=== PATIENT | male | born 1960 | race Caucasian/White ===

== ENCOUNTER 2018-08-09 15:29 | Inpatient (IN) | payer OTHER ==
[2018-08-09 16:35] VITALS: BMI 17.4
--- NOTE | 2018-08-09 17:31 | HP ---
CIWA Score - Admission Criteria [facility] Guidelines: Admission for Medically Managed Detox: Requires at least one of the followin. CIWA greater than 12 2. Seizures within the past 24 hours 3. Delirium tremens within the past 24 hours 4. Hallucinations within the past 24 hours 5. Acute intervention needed for co occurring medical disorder 6. Acute intervention needed for co occurring psychiatric disorder 7. Severe withdrawal that cannot be handled at a lower level of care (continued vomiting, continued diarrhea, abnormal vital signs) requiring intravenous medication and/or fluids 8. Admission ROS S - HPI Chief Complaint: SEEKING REHAB SERVICES Allergies/Adverse Reactions: Allergies Allergy/AdvReac Type Severity Reaction Status Date / Time mushroom Allergy Verified 08/09/18 17:27 shellfish derived AdvReac Verified 08/09/18 17:27 History of Present Illness: 57 Y.O. MAN WITH A HISTORY OF HEROIN DEPENDENCE IS HERE SEEKING ADMISSION TO REHAB. HE REPORTS HIS LAST REHAB ADMISSION WAS 2 YEARS AGO AT [facility]. HE IS CURRENTLY ENROLLED IN [facility] ([phone]) [facility] AND STATES HE WAS LAST MEDICATED TODAY AT 70MG OF METHADONE. LONGEST PERIOD OF ILLICIT DRUG ABSTINENCE HAS BEEN 11 YEARS. Exam Limitations: No Limitations - Ebola screening Have you traveled outside of the country in the last 21 days: No Have you had contact with anyone from an Ebola affected area: No Have you been sick,other than usual withdrawal symptoms: No - Review of Systems Constitutional: Unintentional Wgt. Loss EENT: reports: No Symptoms Reported Respiratory: reports: No Symptoms reported Cardiac: reports: No Symptoms Reported GI: reports: Nausea : reports: No Symptoms Reported Musculoskeletal: reports: Back Pain Integumentary: reports: No Symptoms Reported Neuro: reports: No Symptoms reported Endocrine: reports: No Symptoms Reported Hematology: reports: No Symptoms Reported Psychiatric: reports: Anxious Other Systems: Reviewed and Negative Patient History - Patient Medical History Hx Anemia: No Hx Asthma: Yes Hx Chronic Obstructive Pulmonary Disease (COPD): No Hx Cancer: No Hx Cardiac Disorders: No Hx Congestive Heart Failure: No Hx Hypertension: No Hx Hypercholesterolemia: No Hx Pacemaker: No HX Cerebrovascular Accident: No Hx Seizures: No Hx Dementia: No Hx Diabetes: No Hx Gastrointestinal Disorders: No Hx Liver Disease: No Hx Genitourinary Disorders: No Hx Sexually Transmitted Disorders: No Hx Renal Disease (ESRD): No Hx Thyroid Disease: No Hx Human Immunodeficiency Virus (HIV): No Hx Hepatitis C: Yes (UNTREATED) Hx Depression: Yes Hx Suicide Attempt: Yes (HX OF SUICID ATTEMPS; LAST WAS IN 06/2017-OVERDOSE ) Hx Bipolar Disorder: Yes Hx Schizophrenia: Yes - Patient Surgical History Past Surgical History: Yes Hx Abdominal Surgery: Yes Anesthesia Reaction: No - PPD History Previous Implant?: Yes Documented Results: Negative w/o proof - Reproductive History Patient is a Female of Child Bearing Age (11 -55 yrs old): No - Smoking Cessation Smoking history: Current every day smoker Have you smoked in the past 12 months: Yes Aproximately how many cigarettes per day: 4 Initiated information on smoking cessation: Yes 'Breaking Loose' booklet given: 08/09/18 - Substance & Tx. History Hx Alcohol Use: No Hx Substance Use: Yes Substance Use Type: Heroin Hx Substance Use Treatment: Yes (ENROLLED IN [facility] 2 YEARS AGO ) - Substances Abused Heroin Route: Injection Frequency: 3-6 times per week Amount used: 1-2 BAGS Age of first use: 13 Date of Last Use: 08/02/18 Family Disease History - Family Disease History Family Disease History: Respiratory: Father ( ) Admission Physical Exam [facility] - Vital Signs Vital Signs: Vital Signs - 24 hr 08/09/18 16:34 Temperature 98.2 F Pulse Rate 64 Respiratory 18 Rate Blood Pressure 154/98 - Physical General Appearance: Yes: Thin, Anxious HEENTM: Yes: Hearing grossly Normal, Normocephalic Respiratory: Yes: Chest Non-Tender, Lungs Clear, Normal Breath Sounds, No Respiratory Distress, No Accessory Muscle Use Neck: Yes: No masses,lesions,Nodules Breast: Yes: Breast Exam Deferred Cardiology: Yes: Regular Rhythm, Regular Rate Abdominal: Yes: Normal Bowel Sounds, Non Tender Genitourinary: Yes: Other (NO COMPLAINTS REPORTED) Back: Yes: Normal Inspection Musculoskeletal: Yes: Back pain, Other (AMBULATES WITH THE USE OF) Extremities: Yes: Normal Inspection, Normal Range of Motion Neurological: Yes: Alert, Normal Mood/Affect, Normal Response. No: Abnormal Cranial NS Integumentary: Yes: Normal Color, Dry, Track Purvis Lymphatic: Yes: Within Normal Limits - Diagnostic (1) Opioid dependence on agonist therapy Current Visit: Yes Status: Chronic (2) Asthma Current Visit: Yes Status: Chronic (3) Underweight Current Visit: Yes Status: Acute (4) Back pain Current Visit: Yes Status: Chronic Qualifiers: Back pain location: low back pain Comment: AMBULATES WITH THE USE OF A CANE (5) Psoriasis Current Visit: Yes Status: Chronic (6) Nicotine dependence Current Visit: Yes Status: Chronic (7) HCV (hepatitis C virus) Current Visit: Yes Status: Chronic Cleared for Admission [facility] - Detox or Rehab [facility] Level of Care: Observation Bed Detox Regimen/Protocol: Not Applicable Claeared for Rehab Admission: Yes [facility] Breath Alcohol Content Breath Alcohol Content: 0 Urine Drug Screen - Results Drug Screen Negative: Yes Urine Drug Screen Results: MTD-Methadone Inpatient Rehab Admission - Initial Determination Are CD services needed?: Yes Free of communicable disease: Yes Not in need of hospitalization: Yes - Rehab Admission Criteria Previous failed treatment: Yes Poor recovery environment: Yes Comorbidities: Yes Lacks judgement: Yes Patient is meeting Inpatient Rehab admission criteria:: Yes
[2018-08-09] MEDS ORDERED: P-EPHED 60MG/TRIPROLIDI 2.5MG TABLET PO PRN (17:48)
[2018-08-09] MEDS ORDERED: guaiFENesin/D-METHORPHAN HB 10 ML UNIT-DOSE CUPS PO PRN (17:48)
[2018-08-09] MEDS ORDERED: MENTHOL/PHENOL 1 EACH UD MM PRN (17:48)
[2018-08-09] MEDS ORDERED: MAGNESIUM HYDROX 2400MG/30ML ORAL SUSPENSION 30 ML CUP PO PRN (17:48)
[2018-08-09] MEDS ORDERED: hydrOXYzine PAMOATE 50 MG CAPSULE (FP) PO PRN (17:48)
[2018-08-09] MEDS ORDERED: LOPERAMIDE HCL 2 MG CAPSULE PO PRN (17:48)
[2018-08-09] MEDS ORDERED: MAGNESIUM CITRATE 300 ML BOTTLE PO PRN (17:48)
[2018-08-09] MEDS ORDERED: MAG HYDROX/AL HYDROX/SIMETH 30 ML UNIT-DOSE CUP PO PRN (17:48)
[2018-08-09] MEDS ORDERED: ALBUTEROL SO4 8 GM HFA INHALER IH PRN (17:50)
[2018-08-09] MEDS: ACETAMINOPHEN 325 MG TABLET (FP) PO PRN (19:03)
[2018-08-09] MEDS ORDERED: MELATONIN 5 MG TABLETS PO PRN (22:00)
[2018-08-09] MEDS: THIAMINE HCL 100 MG TABLET (FP) PO SCH (23:10)
[2018-08-09 23:25] LABS: URINE APPEARANCE CLEAR; URINE BILIRUBIN NEGATIVE (<2.0 mg/dL); URINE COLOR LTYELLOW; URINE GLUCOSE (UA) NEGATIVE (NEGATIVE); URINE KETONE NEGATIVE (NEGATIVE); URINE LEUK ESTERASE NEGATIVE (NEGATIVE); URINE NITRITE NEGATIVE (NEGATIVE); URINE PROTEIN NEGATIVE (NEGATIVE); URINE UROBILINOGEN NEGATIVE mg/dL (0.2-1.0)
[2018-08-10] MEDS: ACETAMINOPHEN 325 MG TABLET (FP) PO PRN ×2 (06:33→20:21)
[2018-08-10] MEDS ORDERED: METHADONE HCL 10 MG TABLET PO SCH (07:30)
[2018-08-10] MEDS ORDERED: METHADONE HCL 10 MG TABLET ONE (07:36)
[2018-08-10] MEDS ORDERED: METHADONE HCL 40 MG DISPERSABLE TABLET ONE (07:36)
[2018-08-10] MEDS: METHADONE 40 MG, METHADONE 30 MG PO SCH (07:41)
[2018-08-10] MEDS: PRENATAL VITAMINS W/ FOLIC ACID TABLET (FP) PO SCH (10:10)
[2018-08-10] MEDS: NICOTINE 14 MG/24 HOURS TOPICAL PATCH TD SCH (10:10)
--- NOTE | 2018-08-10 11:47 | EKG ---
Test Reason : Blood Pressure : / mmHG Vent. Rate : 059 BPM Atrial Rate : 059 BPM P-R Int : 100 ms QRS Dur : 088 ms QT Int : 446 ms P-R-T Axes : 074 090 081 degrees QTc Int : 441 ms SINUS BRADYCARDIA WITH SHORT MS RIGHTWARD AXIS ABNORMAL ECG NO PREVIOUS ECGS AVAILABLE Confirmed by MARRY MEYER MD ([id number]) on 08/10/2018 11:47:15 AM Referred By: Confirmed By:MARRY MEYER MD
--- NOTE | 2018-08-10 12:00 | HP ---
Psychiatrist Admission - Data Date of interview: 08/10/18 Admission source: [facility] Identifying data: This is the first admission to [address] [place] [address] for this 57 years old H male single father of 3,homeless, supported by PA. Medical History: Significant for Hep C,Psoriasis,BA,Low back pain. Psychiatric History: patient is poor historian,reports long and extensive psychiatric history started back in his 32 .He reports multiple psychiatric hospitalizations.About 6-7 suicidal attemptrs,most recent in Jun 2017 ([facility]OD) .Nothing recently.Patient sees psychiatrist at [facility] . Current medications:RISPERDAL 3 MG PO BID AND REMERON 30 MG PO HS. Physical/Sexual Abuse/Trauma History: Not willing to discuss at this time. Vital Signs: Vital Signs - 24 hr 08/09/18 08/09/18 08/10/18 16:34 20:18 00:30 Temperature 98.2 F 98.6 F Pulse Rate 64 60 Respiratory 18 18 18 Rate Blood Pressure 154/98 134/92 08/10/18 08/10/18 03:30 06:44 Temperature 97.5 F L Pulse Rate 65 Respiratory 18 16 Rate Blood Pressure 142/98 Allergies/Adverse Reactions: Allergies Allergy/AdvReac Type Severity Reaction Status Date / Time mushroom Allergy Hives Verified 08/09/18 22:37 No Known Drug Allergies Allergy Verified 08/09/18 17:59 shellfish derived AdvReac Hives Verified 08/09/18 22:37 Date of last physical exam: 08/09/18 Concur with the findings of this exam: Yes - Substance Abuse/Tx History Hx Alcohol Use: No (socially) Hx Substance Use: Yes (heroin iv since 13 yo,2 bags 3-6 times a week) Substance Use Type: Heroin, Opiates Hx Substance Use Treatment: Yes (longest abstinence 12 years) Mental Status Exam - Mental Status Exam Alert and Oriented to: Time, Place, Person Cognitive Function: Grossly Intact Patient Appearance: Unkempt Mood: Irritable Affect: Mood Congruent, Labile Patient Behavior: Cooperative Speech Pattern: Clear Voice Loudness: Normal Thought Process: Goal Oriented Thought Disorder: Not Present Hallucinations: Denies Suicidal Ideation: Denies Homicidal Ideation: Denies Insight/Judgement: Fair Sleep: Fair Appetite: Good, Weight loss Muscle strength/Tone: Normal Gait/Station: Normal Psychiatric Findings - Problem List ([place] 1, 2,3) (1) Asthma Current Visit: Yes Status: Chronic (2) Back pain Current Visit: Yes Status: Chronic Qualifiers: Back pain location: low back pain Comment: AMBULATES WITH THE USE OF A CANE (3) HCV (hepatitis C virus) Current Visit: Yes Status: Chronic (4) Nicotine dependence Current Visit: Yes Status: Chronic (5) Opioid dependence on agonist therapy Current Visit: Yes Status: Chronic (6) Psoriasis Current Visit: Yes Status: Chronic (7) Schizoaffective disorder Current Visit: Yes Status: Chronic - Initial Treatment Plan Initial Treatment Plan: Continue current medications as per plan.
[2018-08-10 14:59] LABS: HEMATOCRIT 34.6 % (35.4-49); HEMOGLOBIN 11.1 GM/dL (11.7-16.9); MCH 29.9 pg (25.7-33.7); MCHC 32.1 g/dl (32.0-35.9); MEAN CELL VOLUME 93.1 fl (80-96); MEAN PLT VOLUME 7.9 fl (7.5-11.1); PLATELET COUNT 303 K/MM3 (134-434); RBC 3.72 M/mm3 (4.00-5.60); RDW 14.1 % (11.9-15.9); WHITE BLOOD COUNT 6.5 K/mm3 (4.0-10.0)
[2018-08-10 15:12] LABS: ALBUMIN 2.4 g/dl (3.4-5.0); ALK PHOS 81 U/L (45-117); ANION GAP 9 MMOL/L (8-16); BILIRUBIN,TOTAL 0.4 mg/dL (0.2-1); BLOOD UREA NITROGEN 8 mg/dL (7-18); CALCIUM 8.3 mg/dL (8.5-10.1); CHLORIDE 102 mmol/L (98-107); CO2 28 mmol/L (21-32); CREATININE 0.5 mg/dL (0.55-1.3); GLUCOSE,RANDOM 114 mg/dL (74-106); POTASSIUM 3.6 mmol/L (3.5-5.1); SGOT/AST 20 U/L (15-37); SGPT/ALT 16 U/L (13-61); SODIUM 140 mmol/L (136-145); TOT PROT 7.2 g/dl (6.4-8.2)
[2018-08-10] MEDS: IBUPROFEN 400 MG TABLET (FP) PO PRN (15:45)
[2018-08-10] MEDS: risperiDONE 3 MG TABLET PO SCH (22:17)
[2018-08-10] MEDS: THIAMINE HCL 100 MG TABLET (FP) PO SCH (22:17)
[2018-08-10] MEDS: MIRTAZAPINE 30 MG TABLET (FP) PO SCH (22:17)
[2018-08-11] MEDS: ACETAMINOPHEN 325 MG TABLET (FP) PO PRN ×3 (01:56→17:18)
[2018-08-11] MEDS ORDERED: METHADONE HCL 10 MG TABLET ONE (03:16)
[2018-08-11] MEDS ORDERED: METHADONE HCL 40 MG DISPERSABLE TABLET ONE (03:16)
[2018-08-11] MEDS: METHADONE 40 MG, METHADONE 30 MG PO SCH (06:33)
[2018-08-11] MEDS: risperiDONE 3 MG TABLET PO SCH ×2 (10:41→22:13)
[2018-08-11] MEDS: NICOTINE 14 MG/24 HOURS TOPICAL PATCH TD SCH (10:41)
[2018-08-11] MEDS: PRENATAL VITAMINS W/ FOLIC ACID TABLET (FP) PO SCH (10:41)
--- NOTE | 2018-08-11 12:00 | EKG ---
Test Reason : Blood Pressure : / mmHG Vent. Rate : 048 BPM Atrial Rate : 048 BPM P-R Int : 104 ms QRS Dur : 096 ms QT Int : 480 ms P-R-T Axes : 072 090 088 degrees QTc Int : 428 ms SINUS BRADYCARDIA WITH SHORT GA RIGHTWARD AXIS T WAVE ABNORMALITY, CONSIDER ANTEROLATERAL ISCHEMIA ABNORMAL ECG WHEN COMPARED WITH ECG OF 09-AUG-2018 19:44, NO SIGNIFICANT CHANGE WAS FOUND Confirmed by JH NESBITT, EDEL ([id number]) on 08/11/2018 11:59:38 AM Referred By: Rayna GUZMÁN, Confirmed By:EDEL PEÑALOZA MD
[2018-08-11] MEDS ORDERED: CYCLOBENZAPRINE HCL 10 MG TABLET (FP) PO ONE (18:30)
[2018-08-11] MEDS: CYCLOBENZAPRINE HCL 5 MG TABLET PO SCH (22:13)
[2018-08-11] MEDS: THIAMINE HCL 100 MG TABLET (FP) PO SCH (22:13)
[2018-08-11] MEDS: MIRTAZAPINE 30 MG TABLET (FP) PO SCH (22:13)
[2018-08-12] MEDS ORDERED: METHADONE HCL 10 MG TABLET ONE (04:19)
[2018-08-12] MEDS ORDERED: METHADONE HCL 40 MG DISPERSABLE TABLET ONE (04:19)
[2018-08-12] MEDS: ACETAMINOPHEN 325 MG TABLET (FP) PO PRN ×2 (06:21→12:19)
[2018-08-12] MEDS: METHADONE 40 MG, METHADONE 30 MG PO SCH (06:22)
[2018-08-12] MEDS: CYCLOBENZAPRINE HCL 5 MG TABLET PO SCH ×3 (06:22→21:43)
[2018-08-12] MEDS: NICOTINE 14 MG/24 HOURS TOPICAL PATCH TD SCH (10:22)
[2018-08-12] MEDS: risperiDONE 3 MG TABLET PO SCH ×2 (10:22→21:43)
[2018-08-12] MEDS: PRENATAL VITAMINS W/ FOLIC ACID TABLET (FP) PO SCH (10:22)
[2018-08-12] MEDS: IBUPROFEN 400 MG TABLET (FP) PO PRN ×2 (10:30→19:26)
[2018-08-12] MEDS ORDERED: METHADONE HCL 40 MG DISPERSABLE TABLET PO SCH (15:26)
--- NOTE | 2018-08-12 15:27 | PN ---
[facility] Progress Note Note: Pt c/o back pain. Says he fell down before he came here and also last year- since then with pain of L hip. Walks with cane. On several prn meds- will add shirlene quezada to med list. d/w pt exercises to decrease pain Pt lost about 30 lbs in the last few weeks- pt does not know why- has gained a couple of pounds since his stay here- says he does not have good appetite Also c/o constipation Plan: exercises for back pain, shirlene quezada, prn pain meds Will decrease methadone dose by 5mg to 65mg b/c of recent weight loss and pt more unstable- pt agrees and requested this has prn meds for constipation has ensure with meals
[2018-08-12] MEDS: METHYL SALICYLATE/MENTHOL OINT 30 GM TUBE TP SCH (21:43)
[2018-08-12] MEDS: THIAMINE HCL 100 MG TABLET (FP) PO SCH (21:43)
[2018-08-12] MEDS: MIRTAZAPINE 30 MG TABLET (FP) PO SCH (21:43)
[2018-08-13] MEDS ORDERED: METHADONE HCL 10 MG TABLET ONE (04:19)
[2018-08-13] MEDS ORDERED: METHADONE HCL 5 MG TABLET ONE (04:19)
[2018-08-13] MEDS ORDERED: METHADONE HCL 40 MG DISPERSABLE TABLET ONE (04:19)
[2018-08-13] MEDS: METHADONE 40 MG, METHADONE 20 MG, METHADONE 5 MG PO SCH (06:20)
[2018-08-13] MEDS: CYCLOBENZAPRINE HCL 5 MG TABLET PO SCH ×3 (06:22→21:35)
[2018-08-13] MEDS: IBUPROFEN 400 MG TABLET (FP) PO PRN ×2 (06:22→21:36)
[2018-08-13] MEDS: risperiDONE 3 MG TABLET PO SCH ×2 (10:29→21:35)
[2018-08-13] MEDS: PRENATAL VITAMINS W/ FOLIC ACID TABLET (FP) PO SCH (10:29)
[2018-08-13] MEDS: METHYL SALICYLATE/MENTHOL OINT 30 GM TUBE TP SCH ×2 (10:30→21:36)
[2018-08-13] MEDS: NICOTINE 14 MG/24 HOURS TOPICAL PATCH TD SCH (10:30)
[2018-08-13] MEDS: MIRTAZAPINE 30 MG TABLET (FP) PO SCH (21:35)
[2018-08-13] MEDS: THIAMINE HCL 100 MG TABLET (FP) PO SCH (21:35)
[2018-08-14] MEDS ORDERED: METHADONE HCL 5 MG TABLET ONE (02:16)
[2018-08-14] MEDS ORDERED: METHADONE HCL 40 MG DISPERSABLE TABLET ONE (02:16)
[2018-08-14] MEDS ORDERED: METHADONE HCL 10 MG TABLET ONE (02:16)
[2018-08-14] MEDS: METHADONE 40 MG, METHADONE 20 MG, METHADONE 5 MG PO SCH (06:06)
[2018-08-14] MEDS: CYCLOBENZAPRINE HCL 5 MG TABLET PO SCH ×3 (06:07→21:34)
[2018-08-14] MEDS: ACETAMINOPHEN 325 MG TABLET (FP) PO PRN (10:05)
[2018-08-14] MEDS: METHYL SALICYLATE/MENTHOL OINT 30 GM TUBE TP SCH ×2 (10:05→21:35)
[2018-08-14] MEDS: NICOTINE 14 MG/24 HOURS TOPICAL PATCH TD SCH (10:05)
[2018-08-14] MEDS: risperiDONE 3 MG TABLET PO SCH ×2 (10:05→21:34)
[2018-08-14] MEDS: PRENATAL VITAMINS W/ FOLIC ACID TABLET (FP) PO SCH (10:05)
[2018-08-14] MEDS: MIRTAZAPINE 30 MG TABLET (FP) PO SCH (21:34)
[2018-08-14] MEDS: THIAMINE HCL 100 MG TABLET (FP) PO SCH (21:34)
[2018-08-15] MEDS ORDERED: METHADONE HCL 5 MG TABLET ONE (03:21)
[2018-08-15] MEDS ORDERED: METHADONE HCL 10 MG TABLET ONE (03:22)
[2018-08-15] MEDS ORDERED: METHADONE HCL 40 MG DISPERSABLE TABLET ONE (03:22)
[2018-08-15] MEDS: CYCLOBENZAPRINE HCL 5 MG TABLET PO SCH ×2 (06:24→14:50)
[2018-08-15] MEDS: METHADONE 40 MG, METHADONE 20 MG, METHADONE 5 MG PO SCH (06:24)
[2018-08-15] MEDS: METHYL SALICYLATE/MENTHOL OINT 30 GM TUBE TP SCH ×2 (10:54→21:28)
[2018-08-15] MEDS: risperiDONE 3 MG TABLET PO SCH ×2 (10:55→21:26)
[2018-08-15] MEDS: NICOTINE 14 MG/24 HOURS TOPICAL PATCH TD SCH (10:55)
[2018-08-15] MEDS: PRENATAL VITAMINS W/ FOLIC ACID TABLET (FP) PO SCH (10:55)
[2018-08-15] MEDS: NICOTINE POLACRILEX 2 MG GUM BC PRN (10:55)
--- NOTE | 2018-08-15 14:27 | PN ---
S Progress Note Note: PATIENT C/O LBP. STATES PAIN STARTED PRIOR TO ADMISSION WHEN HE SLIPPED ON STEPS. PATIENT STATES PAIN LEVEL 5/10, NON-RADIATING. AMBULATES WITH CANE. EXT FULL ROM, NO EDEMA. + NUMBNESS/TINGLING TO RLE. WILL D/C FLEXERIL NOT EFFECTIVE FOR PAIN RELIEF, WILL ORDER LS SPINE XRAY, START GABAPENTIN 100MG TID AND MONITOR CLINICALLY. Vital Signs Temperature 98.5 F 08/15/18 07:02 Pulse Rate 109 H 08/15/18 07:02 Respiratory Rate 16 08/15/18 07:02 Blood Pressure 143/101 H 08/15/18 07:02 O2 Sat by Pulse Oximetry (%)
[2018-08-15] MEDS: MIRTAZAPINE 30 MG TABLET (FP) PO SCH (21:26)
[2018-08-15] MEDS: GABAPENTIN 100 MG CAPSULE (FP) PO SCH (21:26)
[2018-08-15] MEDS: THIAMINE HCL 100 MG TABLET (FP) PO SCH (21:26)
[2018-08-16] MEDS ORDERED: METHADONE HCL 40 MG DISPERSABLE TABLET ONE (02:39)
[2018-08-16] MEDS ORDERED: METHADONE HCL 5 MG TABLET ONE (02:39)
[2018-08-16] MEDS ORDERED: METHADONE HCL 10 MG TABLET ONE (02:39)
[2018-08-16] MEDS: GABAPENTIN 100 MG CAPSULE (FP) PO SCH ×3 (06:12→21:38)
[2018-08-16] MEDS: METHADONE 40 MG, METHADONE 20 MG, METHADONE 5 MG PO SCH (06:12)
[2018-08-16] MEDS: PRENATAL VITAMINS W/ FOLIC ACID TABLET (FP) PO SCH (10:36)
[2018-08-16] MEDS: risperiDONE 3 MG TABLET PO SCH ×2 (10:36→21:38)
[2018-08-16] MEDS: NICOTINE 14 MG/24 HOURS TOPICAL PATCH TD SCH (10:36)
[2018-08-16] MEDS: METHYL SALICYLATE/MENTHOL OINT 30 GM TUBE TP SCH ×2 (10:36→22:26)
[2018-08-16] MEDS: NICOTINE POLACRILEX 2 MG GUM BC PRN (10:38)
[2018-08-16] MEDS: MIRTAZAPINE 30 MG TABLET (FP) PO SCH (21:38)
[2018-08-16] MEDS: THIAMINE HCL 100 MG TABLET (FP) PO SCH (21:38)
[2018-08-17] MEDS ORDERED: METHADONE HCL 5 MG TABLET ONE (02:50)
[2018-08-17] MEDS ORDERED: METHADONE HCL 40 MG DISPERSABLE TABLET ONE (02:51)
[2018-08-17] MEDS ORDERED: METHADONE HCL 10 MG TABLET ONE (02:51)
[2018-08-17] MEDS: GABAPENTIN 100 MG CAPSULE (FP) PO SCH ×3 (06:25→21:22)
[2018-08-17] MEDS: METHADONE 40 MG, METHADONE 20 MG, METHADONE 5 MG PO SCH (06:25)
[2018-08-17] MEDS: PRENATAL VITAMINS W/ FOLIC ACID TABLET (FP) PO SCH (10:38)
[2018-08-17] MEDS: METHYL SALICYLATE/MENTHOL OINT 30 GM TUBE TP SCH ×2 (10:38→21:23)
[2018-08-17] MEDS: NICOTINE 14 MG/24 HOURS TOPICAL PATCH TD SCH (10:39)
[2018-08-17] MEDS: risperiDONE 3 MG TABLET PO SCH ×2 (10:39→21:22)
[2018-08-17] MEDS: NICOTINE POLACRILEX 2 MG GUM BC PRN (10:39)
[2018-08-17] MEDS: IBUPROFEN 400 MG TABLET (FP) PO PRN (19:17)
[2018-08-17] MEDS: MIRTAZAPINE 30 MG TABLET (FP) PO SCH (21:23)
[2018-08-17] MEDS: THIAMINE HCL 100 MG TABLET (FP) PO SCH (21:23)
[2018-08-18] MEDS ORDERED: METHADONE HCL 10 MG TABLET ONE (04:44)
[2018-08-18] MEDS ORDERED: METHADONE HCL 5 MG TABLET ONE (04:44)
[2018-08-18] MEDS ORDERED: METHADONE HCL 40 MG DISPERSABLE TABLET ONE (04:45)
[2018-08-18] MEDS: GABAPENTIN 100 MG CAPSULE (FP) PO SCH ×3 (06:15→21:19)
[2018-08-18] MEDS: METHADONE 40 MG, METHADONE 20 MG, METHADONE 5 MG PO SCH (06:15)
[2018-08-18] MEDS: IBUPROFEN 400 MG TABLET (FP) PO PRN (06:17)
[2018-08-18] MEDS: NICOTINE 14 MG/24 HOURS TOPICAL PATCH TD SCH (10:06)
[2018-08-18] MEDS: METHYL SALICYLATE/MENTHOL OINT 30 GM TUBE TP SCH ×2 (10:06→21:20)
[2018-08-18] MEDS: risperiDONE 3 MG TABLET PO SCH ×2 (10:06→21:19)
[2018-08-18] MEDS: PRENATAL VITAMINS W/ FOLIC ACID TABLET (FP) PO SCH (10:06)
[2018-08-18] MEDS: ACETAMINOPHEN 325 MG TABLET (FP) PO PRN (10:08)
[2018-08-18] MEDS: NICOTINE POLACRILEX 2 MG GUM BC PRN (10:09)
[2018-08-18] MEDS: THIAMINE HCL 100 MG TABLET (FP) PO SCH (21:19)
[2018-08-18] MEDS: MIRTAZAPINE 30 MG TABLET (FP) PO SCH (21:19)
[2018-08-19] MEDS ORDERED: METHADONE HCL 10 MG TABLET ONE (05:42)
[2018-08-19] MEDS ORDERED: METHADONE HCL 5 MG TABLET ONE (05:42)
[2018-08-19] MEDS ORDERED: METHADONE HCL 40 MG DISPERSABLE TABLET ONE (05:42)
[2018-08-19] MEDS: METHADONE 40 MG, METHADONE 20 MG, METHADONE 5 MG PO SCH (06:19)
[2018-08-19] MEDS: GABAPENTIN 100 MG CAPSULE (FP) PO SCH ×3 (06:20→21:28)
[2018-08-19] MEDS: PRENATAL VITAMINS W/ FOLIC ACID TABLET (FP) PO SCH (10:43)
[2018-08-19] MEDS: METHYL SALICYLATE/MENTHOL OINT 30 GM TUBE TP SCH ×2 (10:43→21:33)
[2018-08-19] MEDS: risperiDONE 3 MG TABLET PO SCH ×2 (10:43→21:28)
[2018-08-19] MEDS: NICOTINE 14 MG/24 HOURS TOPICAL PATCH TD SCH (10:43)
--- NOTE | 2018-08-19 12:41 | PN ---
[facility] Progress Note Note: Pt c/o hemorrhoids- blood in the stool- strains when he has a BM. Has one episode yesterday. Nothing today. Pt to request Citroma to help with constipation. f/u prn
[2018-08-19] MEDS: ACETAMINOPHEN 325 MG TABLET (FP) PO PRN (14:08)
[2018-08-19] MEDS: NICOTINE POLACRILEX 2 MG GUM BC PRN (14:08)
[2018-08-19] MEDS: THIAMINE HCL 100 MG TABLET (FP) PO SCH (21:28)
[2018-08-19] MEDS: MIRTAZAPINE 30 MG TABLET (FP) PO SCH (21:29)
[2018-08-19] MEDS: IBUPROFEN 400 MG TABLET (FP) PO PRN (21:30)
[2018-08-20] MEDS ORDERED: METHADONE HCL 5 MG TABLET ONE (04:01)
[2018-08-20] MEDS ORDERED: METHADONE HCL 40 MG DISPERSABLE TABLET ONE (04:02)
[2018-08-20] MEDS ORDERED: METHADONE HCL 10 MG TABLET ONE (04:02)
[2018-08-20] MEDS: METHADONE 40 MG, METHADONE 20 MG, METHADONE 5 MG PO SCH (06:10)
[2018-08-20] MEDS: GABAPENTIN 100 MG CAPSULE (FP) PO SCH ×3 (06:10→21:50)
[2018-08-20] MEDS: NICOTINE 14 MG/24 HOURS TOPICAL PATCH TD SCH (10:39)
[2018-08-20] MEDS: PRENATAL VITAMINS W/ FOLIC ACID TABLET (FP) PO SCH (10:39)
[2018-08-20] MEDS: risperiDONE 3 MG TABLET PO SCH ×2 (10:39→21:51)
[2018-08-20] MEDS: IBUPROFEN 400 MG TABLET (FP) PO PRN ×2 (10:40→17:58)
[2018-08-20] MEDS: METHYL SALICYLATE/MENTHOL OINT 30 GM TUBE TP SCH ×2 (10:42→22:35)
[2018-08-20] MEDS: MIRTAZAPINE 30 MG TABLET (FP) PO SCH (21:50)
[2018-08-20] MEDS: THIAMINE HCL 100 MG TABLET (FP) PO SCH (21:51)
[2018-08-21] MEDS ORDERED: METHADONE HCL 5 MG TABLET ONE (03:24)
[2018-08-21] MEDS ORDERED: METHADONE HCL 10 MG TABLET ONE (03:24)
[2018-08-21] MEDS ORDERED: METHADONE HCL 40 MG DISPERSABLE TABLET ONE (03:24)
[2018-08-21] MEDS: GABAPENTIN 100 MG CAPSULE (FP) PO SCH ×3 (06:17→22:34)
[2018-08-21] MEDS: METHADONE 40 MG, METHADONE 20 MG, METHADONE 5 MG PO SCH (06:18)
[2018-08-21] MEDS: PRENATAL VITAMINS W/ FOLIC ACID TABLET (FP) PO SCH (10:06)
[2018-08-21] MEDS: NICOTINE 14 MG/24 HOURS TOPICAL PATCH TD SCH (10:06)
[2018-08-21] MEDS: ACETAMINOPHEN 325 MG TABLET (FP) PO PRN ×2 (10:07→19:00)
[2018-08-21] MEDS: risperiDONE 3 MG TABLET PO SCH ×2 (10:09→22:34)
[2018-08-21] MEDS: METHYL SALICYLATE/MENTHOL OINT 30 GM TUBE TP SCH ×2 (10:09→22:34)
[2018-08-21] MEDS: MIRTAZAPINE 30 MG TABLET (FP) PO SCH (22:34)
[2018-08-21] MEDS: THIAMINE HCL 100 MG TABLET (FP) PO SCH (22:34)
[2018-08-22] MEDS ORDERED: METHADONE HCL 5 MG TABLET ONE (02:50)
[2018-08-22] MEDS ORDERED: METHADONE HCL 10 MG TABLET ONE (02:51)
[2018-08-22] MEDS ORDERED: METHADONE HCL 40 MG DISPERSABLE TABLET ONE (02:51)
[2018-08-22] MEDS: METHADONE 40 MG, METHADONE 20 MG, METHADONE 5 MG PO SCH (06:38)
[2018-08-22] MEDS: GABAPENTIN 100 MG CAPSULE (FP) PO SCH ×3 (06:39→21:34)
[2018-08-22] MEDS: IBUPROFEN 400 MG TABLET (FP) PO PRN ×3 (08:50→21:34)
[2018-08-22] MEDS: risperiDONE 3 MG TABLET PO SCH ×2 (09:59→21:34)
[2018-08-22] MEDS: PRENATAL VITAMINS W/ FOLIC ACID TABLET (FP) PO SCH (09:59)
[2018-08-22] MEDS: NICOTINE 14 MG/24 HOURS TOPICAL PATCH TD SCH (09:59)
[2018-08-22] MEDS: METHYL SALICYLATE/MENTHOL OINT 30 GM TUBE TP SCH ×2 (09:59→21:35)
[2018-08-22] MEDS: NICOTINE POLACRILEX 2 MG GUM BC PRN (10:01)
[2018-08-22] MEDS: THIAMINE HCL 100 MG TABLET (FP) PO SCH (21:34)
[2018-08-22] MEDS: MIRTAZAPINE 30 MG TABLET (FP) PO SCH (21:34)
[2018-08-23] MEDS ORDERED: METHADONE HCL 5 MG TABLET ONE (04:09)
[2018-08-23] MEDS ORDERED: METHADONE HCL 40 MG DISPERSABLE TABLET ONE (04:10)
[2018-08-23] MEDS ORDERED: METHADONE HCL 10 MG TABLET ONE (04:10)
[2018-08-23] MEDS: METHADONE 40 MG, METHADONE 20 MG, METHADONE 5 MG PO SCH (06:40)
[2018-08-23] MEDS: IBUPROFEN 400 MG TABLET (FP) PO PRN ×2 (06:42→21:30)
[2018-08-23] MEDS: GABAPENTIN 100 MG CAPSULE (FP) PO SCH ×3 (06:42→21:30)
[2018-08-23] MEDS: METHYL SALICYLATE/MENTHOL OINT 30 GM TUBE TP SCH ×2 (10:19→21:31)
[2018-08-23] MEDS: PRENATAL VITAMINS W/ FOLIC ACID TABLET (FP) PO SCH (10:19)
[2018-08-23] MEDS: risperiDONE 3 MG TABLET PO SCH ×2 (10:19→21:30)
[2018-08-23] MEDS: NICOTINE 14 MG/24 HOURS TOPICAL PATCH TD SCH (10:19)
[2018-08-23] MEDS: ACETAMINOPHEN 325 MG TABLET (FP) PO PRN ×2 (10:20→19:11)
[2018-08-23] MEDS: THIAMINE HCL 100 MG TABLET (FP) PO SCH (21:29)
[2018-08-23] MEDS: MIRTAZAPINE 30 MG TABLET (FP) PO SCH (21:30)
[2018-08-24] MEDS ORDERED: METHADONE HCL 5 MG TABLET ONE (03:27)
[2018-08-24] MEDS ORDERED: METHADONE HCL 40 MG DISPERSABLE TABLET ONE (03:27)
[2018-08-24] MEDS ORDERED: METHADONE HCL 10 MG TABLET ONE (03:27)
[2018-08-24] MEDS: METHADONE 40 MG, METHADONE 20 MG, METHADONE 5 MG PO SCH (06:21)
[2018-08-24] MEDS: GABAPENTIN 100 MG CAPSULE (FP) PO SCH ×3 (06:21→21:32)
[2018-08-24] MEDS: IBUPROFEN 400 MG TABLET (FP) PO PRN ×2 (06:23→21:33)
[2018-08-24] MEDS: risperiDONE 3 MG TABLET PO SCH ×2 (11:00→21:32)
[2018-08-24] MEDS: METHYL SALICYLATE/MENTHOL OINT 30 GM TUBE TP SCH ×2 (11:00→21:32)
[2018-08-24] MEDS: PRENATAL VITAMINS W/ FOLIC ACID TABLET (FP) PO SCH (11:00)
[2018-08-24] MEDS: NICOTINE 14 MG/24 HOURS TOPICAL PATCH TD SCH (11:00)
[2018-08-24] MEDS: ACETAMINOPHEN 325 MG TABLET (FP) PO PRN (15:50)
[2018-08-24] MEDS: THIAMINE HCL 100 MG TABLET (FP) PO SCH (21:32)
[2018-08-24] MEDS: MIRTAZAPINE 30 MG TABLET (FP) PO SCH (21:32)
[2018-08-25] MEDS ORDERED: METHADONE HCL 40 MG DISPERSABLE TABLET ONE (03:25)
[2018-08-25] MEDS ORDERED: METHADONE HCL 5 MG TABLET ONE (03:25)
[2018-08-25] MEDS ORDERED: METHADONE HCL 10 MG TABLET ONE (03:25)
[2018-08-25] MEDS: GABAPENTIN 100 MG CAPSULE (FP) PO SCH (06:29)
[2018-08-25] MEDS: METHADONE 40 MG, METHADONE 20 MG, METHADONE 5 MG PO SCH (06:29)
[2018-08-25 06:58] VITALS: BP 144/99; PULSE 98; TEMP 97.8
[2018-08-25] MEDS: METHYL SALICYLATE/MENTHOL OINT 30 GM TUBE TP SCH (09:47)
[2018-08-25] MEDS: NICOTINE 14 MG/24 HOURS TOPICAL PATCH TD SCH (09:47)
[2018-08-25] MEDS: risperiDONE 3 MG TABLET PO SCH (09:47)
[2018-08-25] MEDS: IBUPROFEN 400 MG TABLET (FP) PO PRN (09:47)
[2018-08-25] MEDS: PRENATAL VITAMINS W/ FOLIC ACID TABLET (FP) PO SCH (09:47)
--- NOTE | 2018-08-25 10:00 | PN ---
Psychiatric Progress Note Vital Signs: Vital Signs Period Temp Pulse Resp BP Sys/Turner Pulse Ox Last 24 Hr 97.8 F 98 16-18 144/99 Date of Session: 08/25/18 Chief Complaint:: "Discharge" HPI: Patient admitted to for heroin dependence. ROS: Significant for Hep C,Psoriasis,BA,Low back pain. Current Medications: Active Medications Generic Name Dose Route Start Last Admin Trade Name Freq PRN Reason Stop Dose Admin Acetaminophen 650 mg 08/09/18 17:48 08/24/18 15:50 Tylenol - PO 650 mg Q4H PRN Administration FEVER Al Hydroxide/Mg Hydroxide 30 ml 08/09/18 17:48 Mylanta Oral Suspension - PO Q6H PRN DYSPEPSIA Albuterol Sulfate 2 puff 08/09/18 17:50 Ventolin Hfa Inhaler - IH Q4H PRN SHORT OF BREATH/WHEEZING Eucalyptus/Menthol/Phenol/Sorbitol 1 each 08/09/18 17:48 Cepastat Lozenge - MM Q4H PRN SORE THROAT Gabapentin 100 mg 08/15/18 22:00 08/25/18 06:29 Neurontin - PO 100 mg TID CASSY Administration Guaifenesin 10 ml 08/09/18 17:48 Robitussin Dm - PO Q6H PRN COUGH Hydroxyzine Pamoate 50 mg 08/09/18 17:48 Vistaril - PO Q4H PRN AGITATION Ibuprofen 400 mg 08/09/18 17:48 08/25/18 09:47 Motrin - PO 400 mg Q6H PRN Administration Pain level 4-6 Loperamide HCl 4 mg 08/09/18 17:48 Imodium - PO Q6H PRN DIARRHEA Magnesium Citrate 300 ml 08/09/18 17:48 Citroma - PO Q48H PRN CONSTIPATION Magnesium Hydroxide 30 ml 08/09/18 17:48 08/19/18 14:09 Milk Of Magnesia - PO 30 ml DAILY PRN Administration CONSTIPATION Melatonin 5 mg 08/09/18 22:00 Melatonin PO HS PRN INSOMNIA Methadone HCl 40 mg/ Methadone 65 mg 08/20/18 06:00 08/25/18 06:29 HCl 20 mg/ Methadone HCl 5 mg PO 08/26/18 05:59 65 mg DAILY@0600 CASSY Administration Methyl Salicylate 1 applic 08/12/18 22:00 08/25/18 09:47 Ismael-Sandra - TP Not Given BID CASSY Mirtazapine 30 mg 08/10/18 22:00 08/24/18 21:32 Remeron - PO 30 mg HS CASSY Administration Nicotine 14 mg 08/10/18 10:00 08/25/18 09:47 Nicoderm Patch - TD Not Given DAILY CASSY Nicotine Polacrilex 2 mg 08/09/18 17:48 08/22/18 10:01 Nicorette Gum - BC 2 mg Q2H PRN Administration NICOTINE REPLACEMENT RX Multivit/Folic Acid/Iron 1 tab 08/10/18 10:00 08/25/18 09:47 Vitamins (Sjr) - PO 1 tab DAILY CASSY Administration Pseudoephedrine/Triprolidine 1 combo 08/09/18 17:48 Actifed - PO TID PRN NASAL CONGESTION Risperidone 3 mg 08/10/18 22:00 08/25/18 09:47 Risperdal - PO 3 mg BID CASSY Administration Thiamine HCl 100 mg 08/09/18 22:00 08/24/18 21:32 Vitamin B1 - PO 100 mg HS CASSY Administration Medication(s) Change(s): No. Current Side Effect: No Lab tests ordered: No Lab tests reviewed: Yes Provider note:: Patient able to complete the rehabilitation program on . Patient has met his treatment goals and will continue to address his issues at the [facility] drug program in the [place]. Patient reports learning alot of vital information during his stay on . Patient is aware of the importance of changing his behavior and the need for better structure in his life. A 30 day prescription of remeron 30mg HS + Risperdal 3mg BID was electronically sent to patient's pharmacy . Patient reports stable mood, and is motived to remain abstinent from heroin usuage. Patient denies psychotic symptoms and suicidal/ homicidal ideation. Patient is stable for discharge on 08/25/18. Total face to face time:: 35 Mental Status Exam - Mental Status Exam Alert and Oriented to: Time, Place, Person Cognitive Function: Good Patient Appearance: Well Groomed Mood: Hopeful Patient Behavior: Appropriate, Cooperative Speech Pattern: Clear, Appropriate Voice Loudness: Normal Thought Process: Intact, Goal Oriented Thought Disorder: Not Present Hallucinations: Denies Suicidal Ideation: Denies Homicidal Ideation: Denies Insight/Judgement: Good Sleep: Well Appetite: Good Muscle strength/Tone: Normal Gait/Station: Normal Psychiatric Treatment Plan - Problem List (1) Nicotine dependence Current Visit: Yes (2) Opioid dependence on agonist therapy Current Visit: Yes (3) Schizoaffective disorder Current Visit: Yes
== END 2018-08-25 10:05 | disposition home or self-care (01) | DRG 772 ==
LOC: YASAS 15:29 → Y5N 18:06
PROVIDERS: ADMIT Psychiatry & Neurology Psychiatry; ATTEND Psychiatry & Neurology Psychiatry
PROC: HZ42ZZZ Group Counseling for Substance Abuse Treatment, Cognitive-Behavioral (ICD-10-PCS; principal; 2018-08-09)
DX: F11.20 Opioid dependence, uncomplicated (principal); F17.210 Nicotine dependence, cigarettes, uncomplicated; F25.9 Schizoaffective disorder, unspecified; J45.909 Unspecified asthma, uncomplicated; K59.00 Constipation, unspecified; L40.9 Psoriasis, unspecified; M54.5 Low back pain; B18.2 Chronic viral hepatitis C; R63.6 Underweight; Z68.1 Body mass index [BMI] 19.9 or less, adult; R26.89 Other abnormalities of gait and mobility; Z99.89 Dependence on other enabling machines and devices; Z91.5 Personal history of self-harm
CPT/HCPCS: 36415; 72100-TC-FY; 80053; 81003; 85027; 86593; 93005; 93010

== ENCOUNTER 2021-12-15 14:16 | Inpatient (IN) | payer OTHER ==
[2021-12-15] MEDS ORDERED: methaDONE HCL 10 MG TABLET (FOR DETOX USE ONLY) PO ONE (16:00)
[2021-12-15] MEDS ORDERED: DICYCLOMINE HCL 10 MG CAPSULE PO PRN (16:00)
[2021-12-15] MEDS ORDERED: LOPERAMIDE HCL 2 MG CAPSULE PO PRN (16:00)
[2021-12-15] MEDS ORDERED: BISMUTH SUBSALICYLATE 524 MG/30 ML PO PRN (16:00)
[2021-12-15] MEDS ORDERED: NICOTINE 10 MG CARTRIDGE (INHALER) IH PRN (16:00)
[2021-12-15] MEDS ORDERED: MAGNESIUM HYDROX 2400MG/30ML ORAL SUSPENSION 30 ML CUP PO PRN (16:00)
[2021-12-15] MEDS ORDERED: MAG HYDROX/AL HYDROX/SIMETH 30 ML UNIT-DOSE CUP PO PRN (16:00)
[2021-12-15] MEDS ORDERED: MAGNESIUM CITRATE 300 ML BOTTLE PO PRN (16:00)
[2021-12-15] MEDS ORDERED: METHOCARBAMOL 500 MG TABLET PO PRN (16:00)
[2021-12-15] MEDS ORDERED: ACETAMINOPHEN 325 MG TABLET (FP) PO PRN (16:00)
[2021-12-15] MEDS ORDERED: MENTHOL/PHENOL 1 EACH UD MM PRN (16:00)
[2021-12-15] MEDS ORDERED: cloNIDine HCL 0.1 MG TABLET PO PRN (16:00)
[2021-12-15] MEDS ORDERED: ONDANSETRON *ODT* 4 MG TABLET SL PRN (16:00)
[2021-12-15] MEDS ORDERED: ALBUTEROL SO4 HFA INHALER IH PRN (16:06)
[2021-12-15 16:24] VITALS: BMI 17.6
[2021-12-15] MEDS: NICOTINE 7 MG/24 HOURS TOPICAL PATCH TD SCH (19:56)
[2021-12-15] MEDS: hydrOXYzine PAMOATE 25 MG CAPSULE (FP) PO SCH ×2 (19:59→23:32)
[2021-12-15] MEDS: MELATONIN 5 MG TABLETS PO SCH (23:32)
[2021-12-15] MEDS: THIAMINE HCL 100 MG TABLET (FP) PO SCH (23:32)
[2021-12-16] MEDS: hydrOXYzine PAMOATE 25 MG CAPSULE (FP) PO SCH ×5 (05:54→22:12)
[2021-12-16] MEDS ORDERED: methaDONE HCL 10 MG TABLET (FOR DETOX USE ONLY) ONE (09:20)
[2021-12-16] MEDS: NICOTINE 7 MG/24 HOURS TOPICAL PATCH TD SCH (10:30)
[2021-12-16] MEDS: PRENATAL VITAMINS W/ FOLIC ACID TABLET (FP) PO SCH (10:32)
[2021-12-16 11:09] LABS: HEMATOCRIT 41.2 % (35.4-49); MCH 30.9 pg (25.7-33.7); MCHC 34.1 g/dl (32.0-35.9); MEAN CELL VOLUME 90.6 fl (80-96); MEAN PLT VOLUME 7.7 fl (7.5-11.1); PLATELET COUNT 213 10^3/uL (134-434); RBC 4.54 M/mm3 (4.00-5.60); RDW 13.2 % (11.9-15.9); WHITE BLOOD COUNT 5.1 K/mm3 (4.0-10.0)
[2021-12-16 11:19] LABS: BLOOD UREA NITROGEN 8.3 mg/dL (7-18); CALCIUM 8.6 mg/dL (8.5-10.1)
[2021-12-16 11:22] LABS: CREATININE 0.6 mg/dL (0.55-1.3)
[2021-12-16 11:24] LABS: BILIRUBIN,TOTAL 0.4 mg/dL (0.2-1); TOT PROT 6.6 g/dl (6.4-8.2)
[2021-12-16] MEDS: MELATONIN 5 MG TABLETS PO SCH (22:09)
[2021-12-16] MEDS: THIAMINE HCL 100 MG TABLET (FP) PO SCH (22:11)
[2021-12-16] MEDS: diazePAM 5 MG TABLET PO PRN (22:11)
[2021-12-17] MEDS: hydrOXYzine PAMOATE 25 MG CAPSULE (FP) PO SCH ×5 (06:02→22:51)
[2021-12-17] MEDS ORDERED: methaDONE HCL 10 MG TABLET (FOR DETOX USE ONLY) PO ONE (10:00)
[2021-12-17] MEDS: NICOTINE 7 MG/24 HOURS TOPICAL PATCH TD SCH (10:19)
[2021-12-17] MEDS: PRENATAL VITAMINS W/ FOLIC ACID TABLET (FP) PO SCH (10:19)
[2021-12-17 21:24] LABS: EPI CELLS 34 /uL (0-25.1); HYALINE CASTS 2 /uL (0-3.1); URINE APPEARANCE CLOUDY; URINE BACTERIA 16 /uL (0-1359); URINE BILIRUBIN NEGATIVE (NEGATIVE); URINE COLOR YELLOW; URINE GLUCOSE (UA) NEGATIVE (NEGATIVE); URINE KETONE 1+ (NEGATIVE); URINE LEUK ESTERASE TRACE (NEGATIVE); URINE NITRITE NEGATIVE (NEGATIVE); URINE PROTEIN 2+ (NEGATIVE); URINE RBC 1703 /uL (0-23.9); URINE WBC 21 /uL (0-25.8)
[2021-12-17] MEDS: diazePAM 5 MG TABLET PO PRN (22:45)
[2021-12-17] MEDS: THIAMINE HCL 100 MG TABLET (FP) PO SCH (22:45)
[2021-12-17] MEDS: ACETAMINOPHEN 325 MG TABLET (FP) PO PRN (22:46)
[2021-12-17] MEDS: MELATONIN 5 MG TABLETS PO SCH (22:48)
[2021-12-18] MEDS: hydrOXYzine PAMOATE 25 MG CAPSULE (FP) PO SCH ×5 (06:02→23:22)
[2021-12-18] MEDS ORDERED: methaDONE HCL 10 MG TABLET (FOR DETOX USE ONLY) ONE (09:16)
[2021-12-18] MEDS: PRENATAL VITAMINS W/ FOLIC ACID TABLET (FP) PO SCH (10:19)
[2021-12-18] MEDS: NICOTINE 7 MG/24 HOURS TOPICAL PATCH TD SCH (10:20)
[2021-12-18] MEDS: NITROFURANTOIN MACROCRYSTAL 50 MG CAPSULE (FP) PO SCH ×3 (14:19→23:19)
[2021-12-18] MEDS: ACETAMINOPHEN 325 MG TABLET (FP) PO PRN (17:02)
[2021-12-18] MEDS: MELATONIN 5 MG TABLETS PO SCH (23:21)
[2021-12-18] MEDS: THIAMINE HCL 100 MG TABLET (FP) PO SCH (23:22)
[2021-12-19] MEDS: IBUPROFEN 400 MG TABLET (FP) PO PRN (06:02)
[2021-12-19] MEDS: NITROFURANTOIN MACROCRYSTAL 50 MG CAPSULE (FP) PO SCH ×3 (06:03→17:47)
[2021-12-19] MEDS: hydrOXYzine PAMOATE 25 MG CAPSULE (FP) PO SCH ×5 (06:03→22:51)
[2021-12-19] MEDS ORDERED: methaDONE HCL 10 MG TABLET (FOR DETOX USE ONLY) PO ONE (10:00)
[2021-12-19] MEDS: PRENATAL VITAMINS W/ FOLIC ACID TABLET (FP) PO SCH (10:40)
[2021-12-19] MEDS: NICOTINE 7 MG/24 HOURS TOPICAL PATCH TD SCH (12:02)
[2021-12-19 16:00] LABS: SARS-CoV-2 NAA NOT DETECTED
[2021-12-19] MEDS: THIAMINE HCL 100 MG TABLET (FP) PO SCH (22:51)
[2021-12-19] MEDS: MELATONIN 5 MG TABLETS PO SCH (22:51)
[2021-12-20] MEDS: NITROFURANTOIN MACROCRYSTAL 50 MG CAPSULE (FP) PO SCH ×2 (01:00→05:44)
[2021-12-20] MEDS: IBUPROFEN 400 MG TABLET (FP) PO PRN (02:10)
[2021-12-20] MEDS: hydrOXYzine PAMOATE 25 MG CAPSULE (FP) PO SCH ×2 (05:44→10:33)
[2021-12-20 09:51] VITALS: BP 114/86; PULSE 100; TEMP 98.7
[2021-12-20] MEDS: PRENATAL VITAMINS W/ FOLIC ACID TABLET (FP) PO SCH (10:33)
[2021-12-20] MEDS: NICOTINE 7 MG/24 HOURS TOPICAL PATCH TD SCH (10:34)
== END 2021-12-20 10:52 | disposition home or self-care (01) | DRG 897 ==
LOC: YASAS 14:16 → Y6N 18:06
PROVIDERS: ADMIT Allergy & Immunology; ATTEND Allergy & Immunology
PROC: HZ2ZZZZ Detoxification Services for Substance Abuse Treatment (ICD-10-PCS; principal; 2021-12-15)
DX: F11.23 Opioid dependence with withdrawal (principal); N39.0 Urinary tract infection, site not specified; Z68.1 Body mass index [BMI] 19.9 or less, adult; F17.210 Nicotine dependence, cigarettes, uncomplicated; F25.9 Schizoaffective disorder, unspecified; H91.92 Unspecified hearing loss, left ear; J45.909 Unspecified asthma, uncomplicated; B18.2 Chronic viral hepatitis C; M54.50 Low back pain, unspecified; G89.29 Other chronic pain; R63.6 Underweight; Z99.89 Dependence on other enabling machines and devices; Z91.018 Allergy to other foods; Z91.013 Allergy to seafood; Z56.0 Unemployment, unspecified; Z59.00 Homelessness unspecified
CPT/HCPCS: 36415; 80053; 81003; 82947; 83036; 85027; 86780; 87086; 93005; 93010; C9803-CS; J0735; Q0162; U0003; U0005